=== PATIENT | female | born 1990 | race Caucasian/White ===

== ENCOUNTER 2018-09-05 08:45 | Emergency (ER) | payer OTHER ==
[2018-09-05 09:01] VITALS: BP 144/65; PULSE 84; TEMP 98.2; BMI 48.7
--- NOTE | 2018-09-05 09:51 | PDOC ---
History of Present Illness - General Chief Complaint: Wound Stated Complaint: ABCESS/MIGHT BE CEULITUS Time Seen by Provider: 09/05/18 09:15 History Source: Patient Exam Limitations: No Limitations - History of Present Illness Initial Comments: 09/05/18 09:46 27 yr female morbid obesity, type 2 DM with abscess to left lower abdomen for 3 days no fever no chills, started to drain yesterday. Past History - Past Medical History Allergies/Adverse Reactions: Allergies Allergy/AdvReac Type Severity Reaction Status Date / Time iv contrast Allergy Severe Vomiting Uncoded 09/05/18 08:58 Home Medications: Ambulatory Orders Chlorhexidine Gluconate [Hibiclens For Decolonization -] 1 applic TP DAILY #1 bottle 09/05/18 Clindamycin [Cleocin -] 150 mg PO Q6H #28 capsule 09/05/18 COPD: No Diabetes: Yes (type 2) - Immunization History Immunization Up to Date: Yes - Suicide/Smoking/Psychosocial Hx Smoking History: Unknown if ever smoked Review of Systems - Review of Systems Able to Perform ROS?: Yes Is the patient limited Urdu proficient: No Constitutional: No: Symptoms Reported HEENTM: No: Symptoms Reported Respiratory: No: Symptoms reported Cardiac (ROS): No: Symptoms Reported ABD/GI: No: Symptoms Reported : No: Symptoms Reported Musculoskeletal: No: Symptoms Reported Integumentary: Yes: Symptoms Reported *Physical Exam - Vital Signs Last Vital Signs Temp Pulse Resp BP Pulse Ox 98.2 F 84 18 144/65 99 09/05/18 08:55 09/05/18 08:55 09/05/18 08:55 09/05/18 08:55 09/05/18 08:55 - Physical Exam General Appearance: Yes: Nourished, Appropriately Dressed, Obese HEENT: positive: EOMI, JULIANO Integumentary: positive: Other (left lower abdomen with 3cm fluctuant abscess mild surrounding cellulitus ) Procedures - Incision and Drainage I&D Site: Left: Abdomen Betadine cleansed: Yes Anesthesia: 1% Lidocaine Volume(ml): 3 Blade Size: 10 Attempts: 1 Plain Packing: No Complications: none Dressing: Yes Progress: 09/05/18 09:48 copious amounts of green yellow pus returned Medical Decision Making - Medical Decision Making 09/05/18 09:47 cc: abscess , drained, tolerated well wound culture sent will place on clinda follow with PMD in 1 week *DC/Admit/Observation/Transfer Diagnosis at time of Disposition: Abscess - Discharge Dispostion Disposition: HOME Condition at time of disposition: Improved - Prescriptions Prescriptions: Chlorhexidine Gluconate [Hibiclens For Decolonization -] 1 applic TP DAILY #1 bottle Clindamycin [Cleocin -] 150 mg PO Q6H #28 capsule - Referrals Referrals: Melissa Champagne MD [Primary Care Provider] - - Patient Instructions Additional Instructions: keep clean and dry change dressing as needed antibacterial soap as prescribed take the clindamycin as directed return if any worsening symptoms - Post Discharge Activity
== END 2018-09-05 09:55 | disposition home or self-care (01) ==
LOC: JERFT 08:45
PROC: 0J980ZZ Drainage of Abdomen Subcutaneous Tissue and Fascia, Open Approach (ICD-10-PCS; principal; 2018-09-05)
DX: L02.211 Cutaneous abscess of abdominal wall (principal); E11.9 Type 2 diabetes mellitus without complications; Z79.84 Long term (current) use of oral hypoglycemic drugs; E66.01 Morbid (severe) obesity due to excess calories; Z68.42 Body mass index [BMI] 45.0-49.9, adult
CPT/HCPCS: 10060; 87070; 87186; 87205; 99281-25